=== PATIENT | male | born 1970 ===

== ENCOUNTER 2021-08-29 04:26 | Day surgery (SDC) | payer OTHER ==
[2021-08-26 08:28] VITALS: BMI 35.6
[2021-08-29 11:08] VITALS: TEMP 98.2
[2021-08-29 13:12] VITALS: BP 119/67; PULSE 79
== END 2021-08-29 13:13 | disposition home or self-care (01) ==
LOC: JASU-ENDO 04:26
PROVIDERS: ATTEND Internal Medicine Gastroenterology
PROC: 0DBH8ZX Excision of Cecum, Via Natural or Artificial Opening Endoscopic, Diagnostic (ICD-10-PCS; principal; 2021-08-29 12:00)
DX: Z12.11 Encounter for screening for malignant neoplasm of colon (principal); D12.0 Benign neoplasm of cecum; K57.30 Diverticulosis of large intestine without perforation or abscess without bleeding; Z86.010 Personal history of colon polyps; Z80.0 Family history of malignant neoplasm of digestive organs
CPT/HCPCS: 82962; 88305-TC